=== PATIENT | female | born 1975 | race Two or more races ===

== ENCOUNTER → 2021-02-14 | Outpatient (CLI) | payer OTHER ==
--- NOTE | 2021-02-14 12:15 | RAD ---
EXAM: Right wrist, 3 views. HISTORY: Pain. COMPARISON: None. FINDINGS: 3 views of the right wrist are obtained. There is no acute fracture, dislocation or subluxa tion. There is no foreign body. IMPRESSION: No acute osseous finding. Electronically signed by: Samantha Angulo MD (02/14/2021 12:13 PM) [id number]
== END ==
LOC: RAD 11:47
PROVIDERS: ATTEND Physician Assistant
DX: M25.531 Pain in right wrist (principal)
CPT/HCPCS: 73110